=== PATIENT | male | born 1970 | race Caucasian/White ===

== ENCOUNTER 2019-08-07 21:55 | Observation (INO) | payer BC ==
[~2019-08-07] VITALS: Ht 172.7 cm; Wt 119.0 kg
--- NOTE | 2019-08-07 22:04 | NUR ---
EKG IN PROGRESS.
[2019-08-07 22:05] VITALS: Ht 172.7 cm; Wt 119.0 kg
--- NOTE | 2019-08-07 22:45 | NUR ---
PT PRESENTS TO ED WITH C/O BILATERAL CHEST PAIN. PT STATES THAT HE FIRST FELT THE CHEST PAIN ON TUESDAY WHEN HE WAS DRIVING HOME FROM WORK. PT REPORTS THAT THE CHEST PAIN IS ACCOMPAINIED BY UPPER BACK PAIN WHICH THEN MOVES TO HIS LOWER BACK. PT STATES THAT THE PAIN HAS COME AND GONE SEVERAL TIMES OVER THE LAST FEW DAYS AND CAME IN TONIGHT BECAUSE THE PAIN IS NOT IMPROVING. PT DENIES ANY ASSOCIATED SOB OR DIZZINES, NAUSEA OR VOMITING. PT STATES THAT THE PAIN FEELS "LIKE I DID ALOT OF PUSHUPS". PT PLACED ON FULL CM, AOX4, RESP EVEN AND UNLABORED, NO ACUTE DISTRESS NOTED.
[2019-08-07 23:03] LABS: BASOPHIL % 0.2 % (0-2); CALCIUM 8.4 mg/dL (8.5-10.1); CARBON DIOXIDE 27.1 mmol/L (21-32); CHLORIDE SERUM 103 mmol/L (98-107); GFR1 > 60 mL/min; GLUCOSE SERUM 101 mg/dL (74-106); PLATELET COUNT 314 x10^3mcL (130-400); POTASSIUM SERUM 3.6 mmol/L (3.5-5.1); RED CELL DISTRIBUTION WIDTH 12.7 % (11.5-14.5); SODIUM SERUM 138 mmol/L (136-145)
[2019-08-07 23:07] LABS: ALBUMIN 3.8 g/dL (3.4-5.0); ALKALINE PHOSPHATASE 77 U/L (46-116); ALT/SGPT 29 U/L (16-63); AST/SGOT 13 U/L (15-37); BILIRUBIN TOTAL 0.37 mg/dL (0.20-1.00); CHOLESTEROL 169 mg/dL (<200); CHOLESTEROL/HDL RATIO 4.4; HDL CHOLESTEROL 38 mg/dL (40-60); TOTAL PROTEIN, SERUM 7.4 g/dL (6.4-8.2); TRIGLYCERIDES 115 mg/dL (<150)
[2019-08-07 23:15] LABS: microscopic required? NO
[2019-08-07 23:47] LABS: UA SPECIFIC GRAVITY <=1.005 (1.005-1.035); urine erythrocyte NEGATIVE (NEGATIVE)
--- NOTE | 2019-08-08 | NUR ---
PT RESTING IN A POSITION OF COMFORT, AOX4, RESP EVEN AND UNLABORED, NO ACUTE DISTRESS NOTED.
[2019-08-08 00:02] LABS: AMPHETAMINE QUAL UR NONE DETECTED (See below)
--- NOTE | 2019-08-08 01:50 | NUR ---
PT REPORT CALLED TO ANNE FITZPATRICK TO ASSUME PT CARE.
--- NOTE | 2019-08-08 01:55 | NUR ---
PT TRANSFERRED TO [facility] BY [facility] BY MYSELF AND [facility]. PT ON FULL CM FOR TRANSPORT AND VSS. PT AOX4, RESP EVEN AND UNLABORED, NO ACUTE DISTRESS NOTED. PT ACCEPTED BY ANNE FITZPATRICK TO ASSUME PT CARE. PT AMBULATED FROM [facility] TO BED WITHOUT INCIDENT.
[2019-08-08 02:14] VITALS: BP 114/57
--- NOTE | 2019-08-08 02:42 | NUR ---
ADMITTED PATIENT FROM ED,PT WAS RECIEVED TO THE BED AND MADE COMFORTABLE IN BED,ON INITAIL ASSESSMENT PATIENT IS AAO REG RESP NO SOB V/S STABLE,PT WAS PUT ON TELE AND IN NSR NO ECTOPY OR CHEST PAIN AT THIS TIME,PT HAS HL TO THE RT AC SITE PATENT AND INTACT,PT WAS ORIENTED TO THE CALL LIGHT BED CONTROL,TELE MONITOR AND BATHROOM,PT VERBALIZED UNDERSTANDING AND WILL CONTINUE TO MONITOR.
[2019-08-08 04:57] VITALS: BP 118/70
--- NOTE | 2019-08-08 06:27 | NUR ---
PT HAD A RESTING NIGHT NO CHANGE AT THIS TIME AND WILL CONTINUE TO MONITOR.
--- NOTE | 2019-08-08 07:29 | NUR ---
RECEIVED HAND OFF REPORT FROM LEATHER TACKER. PATIENT AWAKE AND ALERT, COMPLAINING OF SLIGHT DISCOMFORT BUT MANAGEABLE. PATIENT REPORTS THAT HE DID NOT SLEEP WELL LAST NIGHT, UPDATED ON CURRENT PLAN OF CARE. AWAITING ROUNDING FROM AND CONSULTATION FROM GLOBE MOUNTER. CALL LIGHT WITHIN REACH, WILL CONTINUE TO MONITOR
[2019-08-08 09:22] VITALS: BP 114/63
--- NOTE | 2019-08-08 09:30 | NUR ---
DR JERONIMO ROUNDED ON PATIENT WITH CHARGE NURSE. STATED THAT HE WILL BE CONSULTING WITH A GAME PROGRAMER FOR PATIENT WITH COMPLAINT OF CHEST PAIN, WILL FOLLOW RECOMMENDATIONS OF GAME PROGRAMER. IF CLEARED, PATIENT CAN BE DISCHARGED. ALSO TO CHANGE PATIENT TO INPAITENT IF NOT CLEARED BY GAME PROGRAMER. ERIC AWARE OF NEED FOR CONSULTATIONS FROM DR MERCEDES
--- NOTE | 2019-08-08 13:00 | NUR ---
NO CONSULTATION FROM DR MERCEDES YET
[2019-08-08 13:13] VITALS: BP 111/54; BP 140/90
--- NOTE | 2019-08-08 15:20 | NUR ---
DR MERCEDES WAS ON [facility] BUT DID NOT HAVE PATIENT ON HIS LIST SO LEFT BEFORE SEEING PATIENT. I SPOKE WITH DR JERONIMO AND RECIEVED ORDER TO CONSULT DR MERCEDES, DR JERONIMO STATED THAT HE HAS INFORMED DR MERCEDES ABOUT PATIENT OVER TEXT, BUT DID NOT ENTER CONSULTATION.
[2019-08-08 16:25] VITALS: BP 102/61
--- NOTE | 2019-08-08 16:38 | NUR ---
PAGED DR MERCEDES AND INFORMED OF SITUATION, DR MERCEDES STATED THAT SINCE HE DID NOT HAVE PATIENT ON HIS LIST HE DID NOT REVIEW PATIENT AND WILL NOT BE ABLE TO UNTIL TOMORROW. DR JERONIMO AWARE AND STATED THAT IF PATIENT WANTED TO BE DISHARGED DR WILL DISCHARGE WITH THE DIAGNOSIS OF ATYPICAL CHEST PAIN AND ENCOURAGE PCP FOLLOW UP. PATIENT DOES NOT WANT TO STAY THE NIGHT TO SEE HAMMER REPAIRER AND IS REQUESTING TO BE DISCHARGED. DR JERONIMO AWARE
--- NOTE | 2019-08-08 17:06 | NUR ---
DISHCARGE ORDER IN, REVIEWED CHART WITH PATIENT AND FAMILY. DISCUSSED CARE AND ENCOURAGED TO FOLLOW UP WITH PCP. NO FURTHER QUESTIONS FROM PATIENT. REMOVED IV, CATH INTACT, TELE 8 TAKEN OFF PATIENT AND GIVEN TO ROOFING MACHINE TENDER. PATIENT ASSISTED FROM UNIT BY ROSAURA FITZPATRICK
== END 2019-08-08 17:13 | disposition home or self-care (01) ==
LOC: ED 21:55 → DU 08-08 00:45
PROVIDERS: Emergency Medicine; ADMIT Internal Medicine Pulmonary Disease
DX: R07.89 Other chest pain (principal); F17.210 Nicotine dependence, cigarettes, uncomplicated
CPT/HCPCS: G0378; J1650; J7030; Q0092

== ENCOUNTER 2020-10-09 15:11 | Emergency (ER) | payer BC ==
[~2020-10-09] VITALS: Ht 172.7 cm; Wt 122.9 kg
[2020-10-09 15:18] VITALS: Ht 172.7 cm; Wt 122.9 kg
[2020-10-09 16:18] LABS: BASOPHIL % 0.5 % (0.2-1.5); PLATELET COUNT 321 x10^3mcL (152-348); RED CELL DISTRIBUTION WIDTH 13.1 % (12.1-16.2)
[2020-10-09 16:26] LABS: CALCIUM 8.1 mg/dL (8.5-10.1); CARBON DIOXIDE 30.4 mmol/L (21-32); CHLORIDE SERUM 105 mmol/L (98-107); GFR1 > 60 mL/min; GLUCOSE SERUM 92 mg/dL (74-106); POTASSIUM SERUM 3.6 mmol/L (3.5-5.1); SODIUM SERUM 139 mmol/L (136-145)
[2020-10-09 16:31] LABS: ALBUMIN 3.8 g/dL (3.4-5.0); ALKALINE PHOSPHATASE 70 U/L (46-116); ALT/SGPT 32 U/L (16-63); AST/SGOT 20 U/L (15-37); BILIRUBIN TOTAL 0.3 mg/dL (0.20-1.00); TOTAL PROTEIN, SERUM 7.3 g/dL (6.4-8.2)
[2020-10-09 18:28] VITALS: BP 125/74
== END 2020-10-09 18:28 | disposition home or self-care (01) ==
LOC: ED 15:11
PROVIDERS: Emergency Medicine
DX: R07.89 Other chest pain (principal); Z88.8 Allergy status to other drugs, medicaments and biological substances; Z20.828 Contact with and (suspected) exposure to other viral communicable diseases
CPT/HCPCS: 83880; 85378